=== PATIENT | male | born 1980 | race Two or more races ===

== ENCOUNTER 2023-02-12 17:16 | Emergency (ER) | payer SELFPAY ==
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
[2023-02-12 17:36] VITALS: BP 130/88; PULSE 70; RESP 16; TEMP 36.6; O2SAT 97; BMI 30.2
== END 2023-02-12 22:39 | disposition left against medical advice (07) ==
PROVIDERS: Emergency Provider Emergency Medicine
DX: R42 Dizziness and giddiness (principal); R51.9 Headache, unspecified; M54.2 Cervicalgia
CPT/HCPCS: 70450; 72125; 99281; 99284

== ENCOUNTER 2023-02-22 21:02 | Emergency (ER) | payer OTHER, SELFPAY ==
--- NOTE | 2023-02-22 | ECG_ITS ---
Test Reason : CRISIS EVEAL Blood Pressure : / mmHG Vent. Rate : 100 BPM Atrial Rate : 100 BPM P-R Int : 130 ms QRS Dur : 166 ms QT Int : 420 ms P-R-T Axes : -21 010 020 degrees QTc Int : 541 ms Normal sinus rhythm Right bundle branch block Abnormal ECG No previous ECGs available Referred By: Generic ED Physician Electronically Signed By:THANH HUNTLEY
--- NOTE | ~2023-02-22 | XR_ITS ---
EXAMINATION: XR CHEST CLINICAL INFORMATION: Chest pain COMPARISON: None available. TECHNIQUE: Frontal view of the chest was obtained. FINDINGS: Elevated left hemidiaphragm. The lungs are well expanded and clear. Heart size and progress clarities normal. XR/XR chest 1V IMPRESSION: Elevated left hemidiaphragm. No acute cardiopulmonary process
[2023-02-22 21:04] VITALS: BP 148/95; PULSE 94; RESP 16; TEMP 36.8; O2SAT 99; BMI 31.1
--- NOTE | 2023-02-22 21:36 | MHC.EDTECH ---
THIS PCT DID PATIENT EKG IN TRIAGE ,PER PROVIDER PATIENT WAS BROUGHT BACK TO ROOM #1.,RN IN ROOM ,PATIENT WAS HOOKED UP TO QUALITY ASSURANCE
[2023-02-22 21:41] VITALS: BP 152/98; PULSE 89; RESP 15; TEMP 36.8; O2SAT 100
[2023-02-22 21:46] LABS: MANUAL DIFF FLAG NO
[2023-02-22 21:47] LABS: Basophils Percent Auto 0.3 % (0-2); Eosinophils Absolute Auto 0.1 X10*3/uL (0.0-0.4); Eosinophils Percent Auto 0.6 % (0-4); Hematocrit 46.9 % (42.0-52.0); Hemoglobin 15.3 g/dl (14.0-18.0); Imm Gran Abs Auto 0.03 X10*3/uL (0.00-0.03); Imm Gran Pct Auto 0.3 % (0.0-0.4); Lymphocytes Absolute Auto 1.2 X10*3/uL (1.2-4.9); Lymphocytes Percent Auto 10.3 % (20-40); Mean Corpuscular HGB Conc 32.6 g/dl (31.0-36.0); Mean Corpuscular Hemoglobin 29.8 pg (27.0-33.0); Mean Corpuscular Volume 91.2 fL (80.0-98.0); Mean Platelet Volume 9.9 fL (9.4-12.4); Monocytes Absolute Auto 1.4 X10*3/uL (0.1-1.2); Monocytes Percent Auto 11.7 % (2-11); Neutrophils Absolute Auto 9.1 x10*3/uL (2.0-8.3); Neutrophils Percent Auto 76.8 % (45-73); Platelet Count 196 X10*3/uL (160-400); Red Blood Count 5.14 X10*6/uL (4.60-5.80); Red Cell Distribution Width 12.5 % (11.0-16.0); White Blood Count 11.8 X10*3/uL (4.8-10.8)
--- NOTE | 2023-02-22 21:47 | PC.NURSE ---
pt reports last alcohol use 0800 today; cocaine use last night. pt reports first time using. reports visual hallucinations. axox4. pt denies other sx; cp/sob/n/v/d/dizziness. pt on monitor RBBB 97 bpm. iv established, ekg obtained, labs drawn. awaiting ua. pt advised to ask for assistance oob. call mcrae within reach.
--- NOTE | 2023-02-22 21:57 | ECG_ITS ---
Test Reason : REPEAT Blood Pressure : / mmHG Vent. Rate : 092 BPM Atrial Rate : 092 BPM P-R Int : 134 ms QRS Dur : 162 ms QT Int : 410 ms P-R-T Axes : -09 010 013 degrees QTc Int : 507 ms Normal sinus rhythm Right bundle branch block Abnormal ECG When compared with ECG of 22-FEB-2023 21:26, No significant change was found Referred By: Fatuma Bender Electronically Signed By:THANH HUNTLEY
[2023-02-22 22:00] LABS: Valproate 26.9 mcg/mL (50.0-100.0)
[2023-02-22 22:03] LABS: Alanine Aminotransferase 22 U/L (0-40); Albumin Level 4.4 g/dL (3.5-5.0); Alkaline Phosphatase 47 U/L (39-117); Anion Gap 15 (12-20); Aspartate Amino Transferase 15 U/L (5-37); Bilirubin Total 0.8 mg/dL (0.0-1.0); Blood Urea Nitrogen 11 mg/dL (9-16); Calcium 9.5 mg/dL (8.4-10.2); Carbon Dioxide 28 mmol/L (22-29); Chloride 102 mmol/L (96-108); Creatinine Clr Calc Pharmacy 123.3; Estimated Glomerular Filt Rate > 60; Ethanol < 10 mg/dL; Glucose Random 122 mg/dL (60-115); Potassium 3.9 mmol/L (3.3-5.1); Sodium 141 mmol/L (135-145); Total Protein 7.2 g/dL (6.5-8.0)
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
[2023-02-22 22:10] LABS: Troponin-I High Sensitivity < 2.7 ng/L (<3.5-35.0)
[2023-02-22] MEDS: LORazepam 2 MG/ML VIAL 1 MG IVPUSH (22:22)
[2023-02-22] MEDS: 0.9 % Sodium Chloride 1,000 ML 999 ML IV (22:25)
[2023-02-22 22:32] LABS: Appearance Urine Clear; Color Urine Yellow; Glucose Urine UA Negative (Negative); Leukocyte Esterase Urine Negative (Negative); Nitrite Urine Negative (Negative); Specific Gravity - Urine <= 1.005 (1.005-1.025); Urine Blood Negative (Negative); Urine Ketones Negative (Negative); Urine Protein Negative (Neg-Trace)
[2023-02-22 22:42] LABS: Amphetamine Screen Urine Not Detected (Not Detect); Barbiturates, Urine Not Detected (Not Detect); Benzodiazepines Screen Urine Not Detected (Not Detect); Cannabinoid Screen Urine Not Detected (Not Detect); Cocaine Screen Urine POSITIVE (Not Detect); Fentanyl, urine Not Detected (Not Detect); Opiate Screen Urine Not Detected (Not Detect); Phencyclidine Screen Urine Not Detected (Not Detect)
[2023-02-22 23:56] LABS: Troponin-I High Sensitivity < 2.7 ng/L (<3.5-35.0)
[2023-02-23 00:22] VITALS: BP 123/78; PULSE 69; RESP 14; TEMP 36.4; O2SAT 98
--- NOTE | 2023-02-23 00:27 | PC.NURSE ---
Pt aox4 resting at the bedside. No apparent distress noted. VSS. NSR on monitor with HR 77. Ambulatory with steady gait to restroom. Food and liquids provided. Pt aware of plan of care.
[2023-02-23 00:56] VITALS: BP 132/84; PULSE 73; RESP 16; TEMP 36.1; O2SAT 98
[2023-02-23] MEDS: Melatonin 3 MG TABLET 9 MG PO (01:24)
[2023-02-23] MEDS: clonazePAM 0.5 MG TABLET PO (01:24)
[2023-02-23 01:56] LABS: COVID-19 Test Negative (Negative); IDNOW Serial# 9DB6401D
--- NOTE | 2023-02-23 06:55 | PC.NURSE ---
Patient slept through the night, no distress observed/reported, behavior non concerning, medication compliant, care consult ordered/pending evaluation, labs completed/resulted, VSS, asymptomatic of withdrawal, appetite adequate, ambulation independent, elimination intact, will continue to monitor.
[2023-02-23] MEDS: Divalproex Sodium 500 MG TABLET.DR PO (10:25)
[2023-02-23] MEDS: buPROPion HCl XL 300 MG TAB.ER.24H PO (10:26)
--- NOTE | 2023-02-23 11:27 | PC.NURSE ---
Ryan was OOB this morning and advocating to D/C. he denies SI/HI/AVH and stated he needed to do a lot today . Ryan verbalized he was feeling better and asked that a member of the care team call his girlfriend and explain to her that he was ok to go and what was going on . Appetite good. No behavioral concerns. PT to DC home.
== END 2023-02-23 11:30 | disposition home or self-care (01) ==
PROVIDERS: Emergency Provider Emergency Medicine
DX: F14.10 Cocaine abuse, uncomplicated (principal); F41.9 Anxiety disorder, unspecified; F32.A Depression, unspecified; Z20.822 Contact with and (suspected) exposure to COVID-19; F19.10 Other psychoactive substance abuse, uncomplicated; Z79.899 Other long term (current) drug therapy
CPT/HCPCS: 36415; 71045; 80053; 80164; 80307; 81003; 84484; 85025; 87635; 93005; 96361; 96374; 99285; J2060; S9485

== ENCOUNTER 2024-05-14 18:21 | Emergency (ER) | payer OTHER, SELFPAY ==
--- NOTE | ~2024-05-14 | XR_ITS ---
EXAMINATION: XR CHEST CLINICAL INFORMATION: Shortness of breath. COMPARISON: Most recent chest radiograph dated 02/22/2023. TECHNIQUE: 2 views of the chest were obtained. FINDINGS: Minimal probable atelectasis within the right lower lobe. No confluent airspace consolidation. No pleural effusion or pneumothorax. Stable cardiomediastinal silhouette. XR/XR chest 2V IMPRESSION: Minimal probable atelectasis within the right lower lobe. Electronically signed by: Steve Alford MD 05/14/2024 09:26 PM MICHAEL
--- NOTE | 2024-05-14 18:38 | ED_ITS ---
HPI - General Adult General Chief complaint: Asthma Stated complaint: Asthma/SOB Related Data Home Medications ?Medication ?Instructions ?Recorded ?Confirmed bupropion HCl 300 mg 24 hr tablet, 300 mg PO DAILY 02/22/23 02/23/23 extended release clonazepam 0.5 mg tablet 0.5 mg PO BEDTIME PRN Anxiety 02/22/23 02/23/23 divalproex 500 mg tablet,delayed 500 mg PO DAILY 02/22/23 02/23/23 release Allergies Allergy/AdvReac Type Severity Reaction Status Date / Time Penicillins [PCN] Allergy Rash Verified 05/14/24 18:40 [facility] Past Medical History Medical History Depression Social History Social History Alcohol intake: current Alcohol type: hard liquor Course Course Course Narrative: This is a rapid medical exam performed by Ankush Cuevas NP: Additional HPI, ROS, PE not included below will be deferred to primary provider. Patient is a 44-year-old male with history of asthma presenting to the ED with complaint of shortness of breath and chest tightness for the past 3 days. Using his nebulizer at home without relief. Denies fevers. Expiratory wheezing throughout. Plan: viral serology, CXR Discharge Plan Discharge Prescriptions: No Action clonazepam 0.5 mg tablet 0.5 mg PO BEDTIME PRN (Reason: Anxiety) divalproex 500 mg tablet,delayed release (DR/EC) 500 mg PO DAILY bupropion HCl 300 mg tablet extended release 24 hr 300 mg PO DAILY Print Language: Green[place]ic
[2024-05-14 18:39] VITALS: BP 131/94; PULSE 98; RESP 20; TEMP 37.1; O2SAT 100; BMI 31.5
[2024-05-14 19:33] LABS: Influenza A PCR NEGATIVE (Negative); Influenza B PCR NEGATIVE (Negative); Resp Syncy Virus RNA Qual PCR NEGATIVE (Negative); SARS COV2 PCR INHOUSE NEGATIVE (Negative)
== END 2024-05-14 23:24 | disposition left against medical advice (07) ==
PROVIDERS: Registered Nurse Emergency; Emergency Provider Internal Medicine
DX: R06.02 Shortness of breath (principal); Z03.818 Encounter for observation for suspected exposure to other biological agents ruled out; Z53.21 Procedure and treatment not carried out due to patient leaving prior to being seen by health care provider
CPT/HCPCS: 0241U; 71046; 99281